=== PATIENT | female | born 1955 | race Caucasian/White ===

== ENCOUNTER 2017-03-04 12:38 | Emergency (ER) | payer OTHER ==
[~2017-03-04] VITALS: Wt 79.5 kg
[2017-03-04] MEDS ORDERED: traMADol 50 MG TAB PO ONE (13:30)
--- NOTE | 2017-03-04 14:41 | RADRPT ---
PROCEDURE: XR Pelvis. CLINICAL INDICATION: Status post fall. Pain. TECHNIQUE: Single AP view of the pelvis. COMPARISON: No prior studies are available for comparison. FINDINGS: The osseous structures, articular spaces, and surrounding soft tissues of the pelvis are unremarkabl e. No acute fracture or dislocation is seen. No radiopaque foreign body is identified. The osseous mineralization is normal. The sacroiliac joints, as visualized, are grossly unremarkable. IMPRESSION: 1. Unremarkable x-ray pelvis. RPTAT: QQ .Dada Liang MD, MD Date Time Electronically viewed and signed by .Dada Liang MD, MD on 03/04/2017 14:41 .L/
--- NOTE | 2017-03-04 14:43 | RADRPT ---
PROCEDURE: XR Tibia and Fibula. CLINICAL INDICATION: Lower leg pain TECHNIQUE: Two views of the right tibia and fibula are available for review. COMPARISON: None available FINDINGS: The right tibia and fibula are intact. No acute fracture or dislocation is seen. No radiopaque for eign body is identified. The soft tissues are unremarkable. IMPRESSION: 1. Unremarkable right tibia and fibula x-ray series. RPTAT: QQ .Dada Liang MD, MD Date Time Electronically viewed and signed by .Dada Liang MD, on 03/04/2017 14:42 .L/
--- NOTE | 2017-03-04 14:44 | RADRPT ---
PROCEDURE: XR Femur. CLINICAL INDICATION: Pain. TECHNIQUE: AP and lateral views of the right femur were obtained. COMPARISON: No prior studies are available for comparison. FINDINGS: There is normal mineralization and alignment. No fracture or osseous lesion is identified. There are normal joints without evidence of arthritis or effusion. The soft tissues are unremarkable. IMPRESSION: 1. Unremarkable right femur x-ray series. RPTAT: QQ .Dada Liang MD, MD Date Time Electronically viewed and signed by .Dada Liang MD, on 03/04/2017 14:43 .L/
--- NOTE | 2017-03-04 14:55 | ERD ---
ER Documentation Chief Complaint Date/Time DATE: 03/04/17 TIME: 14:52 Chief Complaint rle pain s/p slip and fall HPI This a 61-year-old female presents the emergency department today with her son after sustaining a fall at [facility]. Patient states that she slipped on a wet area at [facility] and did the splits and is complaining of right leg pain. Denies any previous trauma. States that she has not taken any medication for the pain. States that she is a [facility] patient but was brought here to this emergency room by ambulance. Denies any fevers or chills ROS All systems reviewed and are negative except as per history of present illness. Medications Home Meds Active Scripts Naproxen* (Naprosyn*) 500 Mg Tablet, 500 MG PO BID Y for PAIN AND/OR INFLAMMATION, #30 TAB Prov:ARNULFO MACKEY PA-C 03/04/17 Tramadol HCl (Tramadol HCl) 50 Mg Tablet, 50 MG PO Q4 Y for PAIN, #20 TAB Prov:ARNULFO MACKEY PA-C 03/04/17 Allergies Allergies: Coded Allergies: Penicillins (Verified Allergy, Intermediate, 03/04/17) PMhx/Soc History of Surgery: No Anesthesia Reaction: No Hx Neurological Disorder: No Hx Respiratory Disorders: No Hx Cardiac Disorders: No Hx Psychiatric Problems: No Hx Miscellaneous Medical Probl: Yes (pre- DM) Hx Alcohol Use: No Hx Substance Use: No Smoking Status: Never smoker Physical Exam Vitals Vital Signs Date Time Temp Pulse Resp B/P Pulse Ox O2 Delivery O2 Flow Rate FiO2 03/04/17 12:40 98.0 88 20 150/79 98 Physical Exam Const: Sitting in wheelchair, no acute distress Head: Atraumatic Eyes: Normal Conjunctiva ENT: Normal External Ears, Nose and Mouth. Neck: Full range of motion..~ No meningismus. Resp: Clear to auscultation bilaterally Cardio: Regular rate and rhythm, no murmurs Skin: No petechiae or rashes MSK: Right leg with no obvious deformity. No effusion. No ecchymosis. Tenderness to palpation posterior aspect of left leg, anterior aspect of left tibia. Pulses 2+. Distal neurovascularly intact. Unable to assess range of motion secondary to pain. Neur: Awake and alert Psych: Normal Mood and Affect Results 24 hrs Current Medications Medications (Trade) Dose Ordered Sig/Rey Route PRN Reason Start Time Stop Time Status Last Admin Dose Admin Tramadol HCl (Ultram) 50 mg ONCE ONCE PO 03/04/17 13:30 03/04/17 13:31 DC 03/04/17 13:29 Ibuprofen (Motrin) 600 mg ONCE ONCE PO 03/04/17 15:00 03/04/17 15:02 DC 03/04/17 15:15 DIAGNOSTIC IMAGING REPORT Patient: EDDIE HAMMONDS : 1955 Age: 61 Sex: F MR #: [id number] DOS: 03/04/17 0000 Ordering MD: ARNULFO MACKEY PA-C Location: [facility] Room/Bed: PROCEDURE: XR Pelvis. CLINICAL INDICATION: Status post fall. Pain. TECHNIQUE: Single AP view of the pelvis. COMPARISON: No prior studies are available for comparison. FINDINGS: The osseous structures, articular spaces, and surrounding soft tissues of the pelvis are unremarkable. No acute fracture or dislocation is seen. No radiopaque foreign body is identified. The osseous mineralization is normal. The sacroiliac joints, as visualized, are grossly unremarkable. IMPRESSION: 1. Unremarkable x-ray pelvis. RPTAT: QQ .Dada Liang MD, MD Date Time Electronically viewed and signed by .Dada Liang MD, MD on 03/04/2017 14:41 .L/ CC: ARNULFO MACKEY PA-C DIAGNOSTIC IMAGING REPORT Patient: EDDIE HAMMONDS : 1955 Age: 61 Sex: F MR #: [id number] DOS: 03/04/17 0000 Ordering MD: ARNULFO MACKEY PA-C Location: [facility] Room/Bed: PROCEDURE: XR Femur. CLINICAL INDICATION: Pain. TECHNIQUE: AP and lateral views of the right femur were obtained. COMPARISON: No prior studies are available for comparison. FINDINGS: There is normal mineralization and alignment. No fracture or osseous lesion is identified. There are normal joints without evidence of arthritis or effusion. The soft tissues are unremarkable. IMPRESSION: 1. Unremarkable right femur x-ray series. RPTAT: QQ .Dada Liang MD, MD Date Time Electronically viewed and signed by .Dada Liang MD, MD on 03/04/2017 14:43 .L/ CC: ARNULFO MACKEY PA-C DIAGNOSTIC IMAGING REPORT Patient: EDDIE HAMMONDS : 1955 Age: 61 Sex: F MR #: [id number] DOS: 03/04/17 0000 Ordering MD: ARNULFO MACKEY PA-C Location: [facility] Room/Bed: PROCEDURE: XR Tibia and Fibula. CLINICAL INDICATION: Lower leg pain TECHNIQUE: Two views of the right tibia and fibula are available for review. COMPARISON: None available FINDINGS: The right tibia and fibula are intact. No acute fracture or dislocation is seen. No radiopaque foreign body is identified. The soft tissues are unremarkable. IMPRESSION: 1. Unremarkable right tibia and fibula x-ray series. RPTAT: QQ .Dada Liang MD, MD Date Time Electronically viewed and signed by .Dada Liang MD, MD on 03/04/2017 14:42 .L/ CC: ARNULFO MACKEY PA-C Procedures/[facility] This is a 61-year-old female who presents to the emergency department today with her son complaining of right leg pain after sustaining a fall at [facility] today. Patient mechanism of injury appears more consistent with musculoskeletal strain and hamstring strain versus avulsion however given patient's complaints of significant pain and patient's age I did obtain images. Images of the pelvis are unremarkable. There is no acute fracture dislocation. Images of the right femur are unremarkable. Soft tissues are unremarkable. There are normal joints without evidence of arthritis or effusion. X-rays of the tibia and fibula are unremarkable. There is no acute fracture or dislocation. Soft tissues are unremarkable. Patient symptoms at this time most consistent with sprain versus strain versus contusion versus labral pathology versus hamstring strain Patient was given [place] here in the emergency department she stated the pain was better but still persistent. She was then given Motrin. She did not want a Toradol injection.. I will give her a short course of tramadol and Naprosyn for home in addition to crutches and an Thong wrap. Patient was also given crutches to help ambulate. She is instructed to follow-up with her [place] physician for further evaluation and management possible referral to orthopedic brace maker. I have asked [place] to the patient that she might get some bruising in the back of her leg. Patient understood. At this time the patient is stable for discharge and outpatient management. Patient should follow up with their PCP in the next 1-2 days. They may return to the emergency department sooner for any persistent or worsening of symptoms. Patient and son understood and agreed with the plan. Departure Diagnosis: Primary Impression: Injury of right leg Encounter type: initial encounter Qualified Code: S89.91XA - Injury of right leg, initial encounter Additional Impression: Fall Encounter type: initial encounter Qualified Code: W19.XXXA - Fall, initial encounter Condition: Fair ARNULFO MACKEY PA-C Mar 04, 2017 14:55
[2017-03-04] MEDS ORDERED: IBUPROFEN 600 MG TAB PO ONE (15:00)
[2017-03-04] MEDS ORDERED: TRAM50TA2 PO (15:03)
[2017-03-04] MEDS ORDERED: NAPR-260 PO (15:03)
== END 2017-03-04 15:28 | disposition home or self-care (01) ==
LOC: FTE 12:38
DX: S89.91XA Unspecified injury of right lower leg, initial encounter (principal); W01.0XXA Fall on same level from slipping, tripping and stumbling without subsequent striking against object, initial encounter; Y92.89 Other specified places as the place of occurrence of the external cause
CPT/HCPCS: 72170; 73550; 73590